=== PATIENT | male | born 1950 | race Caucasian/White ===

== ENCOUNTER 2021-06-10 10:31 | Observation (INO) | payer MEDICARE, OTHER ==
[2021-06-10] VITALS (9 sets, daily range): BP systolic 112–158; BP diastolic 57–77
[~2021-06-10] VITALS: Ht 180.3 cm; Wt 98.4 kg
--- NOTE | ~2021-06-10 | H ---
[address] [address] HISTORY AND PHYSICAL Name: JAMIE MOONEY Room: [address] Quan M.R.#: [id number] Admission: 06/10/21 Attend Phys: Souleymane Velazquez MD Discharge: 06/11/21 Date of : 48 Report #: [id number] THIS REPORT FOR: cc: JAMIE ZAPATA MD Physician not on staff [facility],Medical Records Staff ~ Please refer to the History and Physical performed in the physician's office. By: 0700Medical Records Staff [facility] /SANNA
[~2021-06-10 10:31] MED LIST: ASA81BEC PO; AVODART0.5 MG PO; FLEXERIL PO; LIVALO1 MG PO; MAGNESIUM OXID400 M1 PO; MICARDIS40 MG PO; VITAMIN C1000 MG PO; VITAMIN D310 MC1 PO
--- NOTE | 2021-06-10 11:10 | EKG ---
[place] [address] ELECTROCARDIOGRAM REPORT Name: JAMIE MOONEY Room: [facility]#: [id number] Admission: 06/10/21 Attend Phys: Peggy Jimenez Discharge: Date of : 48 Date of Service: 06/10/211101 Report #: [id number] THIS REPORT FOR: //name// [facility] Test Date: 2021-06-10 Test Time: 11:02:35 Pat Name: JAMIE MOONEY Department: Room: Gender: Nail Professional: : 1950 Requested By: Jamie Dawkins Order Number: [id number] Mark MD: Jamie Dawkins Measurements Intervals [place] Rate: 79 P: DE: QRS: -37 QRSD: 112 T: 31 QT: 425 QTc: 488 Interpretive Statements Atrial fibrillation Incomplete RBBB and LAFB Borderline prolonged QT interval No previous ECG available for comparison Electronically Signed On 06-10-2021 11:09:44 FRAME OPENER by Jamie Dawkins [email or web address] <ELECTRONICALLY SIGNED> By: Jamie Dawkins MD, [facility] 06/10/211108 01 01 Jamie Dawkins MD, FACC /EPI
[2021-06-10 11:14] LABS: HEMATOCRIT 42.4 % (42.0-52.0); HEMOGLOBIN 14.6 gm/dL (14.0-18.0); MCH 30.8 pg (26.0-34.0); MCHC 34.5 g/dL (28.0-37.0); MCV 89.3 fL (80.0-100.0); MPV 6.9 fl. (7.2-11.1); RBC 4.75 mil/uL (4.50-6.00); RDW-CV 13.3 % (10.5-14.5); WBC 6.1 thou/uL (4.0-11.0)
[2021-06-10 11:35] LABS: ANION GAP 10 mmol/L (7-16); BUN 14 mg/dL (7-18); CHLORIDE 102 mmol/L (98-107); CO2 26 mmol/L (21-32); CREATININE 1.3 mg/dL (0.6-1.3); GLUCOSE 109 mg/dL (70-99); POTASSIUM 3.9 mmol/L (3.5-5.1); SODIUM 138 mmol/L (136-145)
[2021-06-10 11:39] LABS: APTT 26.5 Seconds (25.0-31.3); PROTIME 10.4 Seconds (9.20-11.50)
[2021-06-10 11:40] LABS: ALKALINE PHOSPHATASE 77 U/L (46-116); CHOLESTEROL 165 mg/dL (<200); HDL CHOLESTEROL 63 mg/dL (>40); LDL CHOLESTEROL 84 mg/dL (<100); SGOT 18 U/L (15-37); SGPT 28 U/L (30-65); TC:HDL 2.6 Ratio (Not establshd); TOTAL BILIRUBIN 0.6 mg/dL (<0.1-1.0); TOTAL PROTEIN 7.9 g/dL (6.4-8.2); TRIGLYCERIDE 93 mg/dL (<150); VLDL 19 mg/dL (<40)
[2021-06-10 11:43] LABS: SERUM ASSESSMENT Clear
--- NOTE | 2021-06-10 16:15 | CARD ---
[address] [address] CARDIAC CATH REPORT Name: JAMIE MOONEY Room: [address] Quan M.R.#: [id number] Admission: 06/10/21 Attend Phys: Souleymane Velazquez MD Discharge: Date of : 48 Report #: [id number] THIS REPORT FOR: cc: JAMIE ZAPATA MD Physician not on staff Jamie Dawkins MD [facility] ~ APPROVED REPORT Study performed: 06/10/2021 11:14:34 Patient Details Patient Status: Out-Patient Room #: The patient is a 70 year-old male Event Personnel Jamie Dawkins Rehab Nursing Tech, Souleymane Velazquez Neurosurgery Research Director, Diana Ace RN RN, Wes Nguyen E COMMERCE MANAGER Scrub, Genny Dixon RTR Monitor, Celina Chnag, BUZZ Monitor Procedures Performed Art Access - R femoral artery* Left Heart Cath w/or w/o Coronaries C AL Place w/wo Plasty Single LAD PTCA Single Vessel DIAG PCISINGLE Hemostasis w/ Angioseal Indication Chest pain, Abnormal CT angiogram Risk Factors Hypercholesterolemia, Hypertension Admission/Lab Medications/Medications given during procedure Aspirin PO 325 mg, Effient PO 60 mg, , Nitroglycerin IC 200 mcg, Angiomax IV 33.4 mg per kg, Angiomax IV 14 ml, Nitroglycerin IA 100 mcg, Lidocaine Subcut 15 ml, 0.9% Sodium Chloride IV 125 ml per hr, Oxygen Nasal cannula 2 l per min Procedure Narrative The patient was brought electively to the Cardiac Catheterization Laboratory and was prepped and draped in a sterile manner. The right femoral was infiltrated with 2% Lidocaine subcutaneous anesthesia. IV conscious sedation was used throughout procedure with appropriate monitoring and was performed in the presence of a registered nurse who was an independent trained observer other than the physician performing the procedure. A Pierce 6 [place] [address] CARDIAC CATH REPORT Name: JAMIE MOONEY Room: [address] M.R.#: [id number] Admission: 06/10/21 Attend Phys: Souleymane Velazquez MD Discharge: Date of : 48 Report #: [id number] the right femoral artery. Coronary angiography was performed using coronary diagnostic catheters. The right coronary system was accessed and visualized with a Diagnostic 6Fr JR4 catheter. The left coronary system was accessed and visualized with a Diagnostic 6Fr JL4 catheter. The left ventricle was accessed and visualized with a Diagnostic 6Fr pigtail catheter. Left ventricular/Aortic Valve gradient assessed via catheter pullback. Left ventriculogram was performed in MATIAS projection. Pre-demployment femoral angiogram was performed . Closure device was deployed with a Fr Angioseal STS 6Fr. The patient tolerated the procedure well and there were no complications associated with the procedure. There was no hematoma. Intraoperative Conscious Sedation Sedation start time: 1129 Case end Time: 1355 Fentanyl 50 mcg Versed 3 mg Fluoro Time: 48.6 minutes Dose: DAP 228434 cGycm2 7843 mGy Contrast Type and Amount: Visipaque 725 mL Coronary Angiography The patient's coronary anatomy is right dominant. Diagnostic Cath Left Main 0% narrowing LAD 80% tubular calcified proximal left mid LAD stenosis with 80% ostial and 90% mid first diagonal stenosis Circumflex 80% tubular mid vessel stenosis Right Coronary Large dominant vessel with 40% proximalmid vessel narrowing Left Ventriculography The left ventricle is normal in size with normal contractility. The left ventricular ejection fraction is estimated to be 60%. Left ventricular wall motion abnormalities are present. There is no mitral insufficiency. Subtle anteroapical hypokinesis is noted Hemodynamics The aortic pressure is 136/56 mmHg with a mean of 85 mmHg. The left ventricular pressure is 122/0 mmHg with a mean of mmHg. The left ventricular end diastolic pressure is 14 mmHg. There was no gradient across the aortic [place] [address] CARDIAC CATH REPORT Name: JAMIE MOONEY Room: [address] M.R.#: [id number] Admission: 06/10/21 Attend Phys: Souleymane Velazquez MD Discharge: Date of : 48 Report #: [id number] PCI Technique Lesion Anticoagulation was achieved with Angiomax. Patient was preloaded with Angiomax IV 14 ml. Percutaneous coronary intervention was performed on the distal left anterior descending artery segment. The lesion stenosis prior to intervention was 80% with DEENA 3 flow. A 6Fr XB 3.5 Guide Catheter was used to engage the left ostium. A IG: BMW 190cm Interventional Guidewire was used to cross the lesion. BALLOON DILATION A Balloon catheter Mini Trek RX 2.0 X 8 was inserted and inflated up to 8.00atm for 6seconds. Additional Inflation: 8.00atm for 8seconds. A balloon catheter Mini Trek RX 1.5 x 8mm was inserted and inflated up 12 CHRISTIE for 5 seconds and 17 CHRISTIE for 8 seconds. STENT DEPLOYMENT A drug-eluting stent Vishal RX Stent 2.25X8mm was inserted and inflated up to 8.00atm for 6seconds. Additional Inflation: 12.00atm for 3seconds. A drug-eluting stent [place] RX Stent 2.0 x 8 mm was inserted and inflated up to 10 CHRISTIE for 8 seconds and 14 CHRISTIE for 4 seconds. Final angiography reveals 0 % stenosis with DEENA 3 flow. PCI Technique Lesion 2 Percutaneous Coronary Intervention was performed on the first diagnonal branch segment. The lesion stenosis prior to intervention was 90% with DEENA 3 flow. A 6Fr XB 3.5 Guide Catheter was used to engage the left ostium. A IG: ProwaterFlex 180CM Interventional Guidewire was used to cross the lesion. Balloon Dilation A Balloon catheter Mini Trek RX 2.0 X 8 was inserted and inflated up to 8.00atm for 4seconds. Additional Inflation: 10.00atm for 6seconds. Additional Inflation: 12.00atm for 6seconds. A new balloon catheter Mini Trek RX 2.0 X 8 was inserted and inflated up to 5.0 christie for 5 seonds. Additional Inflation: 11.0 christie for 7 seconds. Final angiography reveals 20 % stenosis with DEENA 3 flow. PCI Technique Lesion 3 Percutaneous Coronary Intervention was performed on the proximalmidl left anterior descending artery segment. The lesion stenosis prior to intervention was 80% with DEENA 3 flow. A 6Fr XB 3.5 Guide Catheter was used to engage the left ostium. A IG: ProwaterFlex 180[place] [address] CARDIAC CATH REPORT Name: JAMIE MOONEY Room: [address] M.RRena#: [id number] Admission: 06/10/21 Attend Phys: Souleymane Velazquez MD Discharge: Date of : 48 Report #: [id number] Interventional Guidewire was used to cross the lesion. Balloon Dilation A Balloon catheter Trek RX 2.25 X 15 was inserted and inflated up to 12.00atm for 9seconds. Additional Inflation: 18.00atm for 10seconds. A balloon catheter Trek RX 2.5 X 15 was inserted and inflated up to 14.0 christie for 14 seconds. Additional inflation: 15 christie for 8 seconds. Stent Deployment A drug-eluting stent [place] RX Stent 2.5 X 22mm was inserted and inflated up to 10.00atm for 4seconds. Additional Inflation: 12.00atm for 4seconds. A drug-eluting stent [place] RX stent 2.0 x 8 mm was inserted and inflated up to 14 christie for 6 seconds. Additional inflation: 14 christie for 9 seconds. Additional inflation: 22 christie for 8 seconds. Final angiography reveals 10 % stenosis with DEENA 3 flow. Comments The PCI was technically complex by virtue of LAD diagonal bifurcation disease requiring deployment of multiple stents in the LAD and angioplasty of sequential segments in the proximal and mid first diagonal. Conclusion 1. Severe multivessel coronary artery disease characterized by the following: A 80% calcified proximalmid LAD stenosis with 80% proximal and 90% first diagonal stenosis with 80% focal distal LAD stenosis B 80% tubular narrowing of the midportion of the nondominant circumflex C dominant right coronary with 40% proximalmid vessel narrowing 2. Normal global left ventricular function, estimated ejection fraction being 60% with subtle anteroapical hypokinesis 3 normal left-sided hemodynamic study 4. Successful PCI with deployment of sequential drug-eluting stents in the proximal and distal LAD with 10 and 0% [place] [address] CARDIAC CATH REPORT Name: JAMIE MOONEY Room: [address] Hi.#: [id number] Admission: 06/10/21 Attend Phys: Souleymane Velazquez MD Discharge: Date of : 48 Report #: [id number] following stent deployment and DEENA-3 flow to the distal vessel 5. Successful PTCA of the proximal and mid portions of the first diagonal with 20% residual narrowing and DEENA-3 flow to the distal vessel Recommendations Cardiac Risk Reduction Program Aggressive Medical Therapy Medications Administered Aspirin (any) Prasugrel Diagnostic Cath Approved by: Souleymane Velazquez MD Date/Time: 06/10/2021 16:09:26 <ELECTRONICALLY SIGNED> By: Jamie Dawkins MD, [facility] 06/10/21 1614 1614 1614Jotalha Dawkins MD, FACC /INF
[2021-06-11] VITALS: BP 116/57
[2021-06-11 04:08] VITALS: BP 116/65
--- NOTE | 2021-06-11 04:21 | NUR ---
PT ALERT AND ORIENTED, AD STEPH, ROOM AIR. SLEPT VERY WELL THIS SHIFT. SR ON MONITOR. NO PAIN, SWELLING OR REDNESS AT RIGHT GROIN STENT PLACEMENT SITE. NO FEVER. VITAL SIGNS STABLE. NO REQUESTS FOR ANY PAIN MEDS. AMBULATING WELL THIS MORNING. RECEIVED MEDS AND FLUIDS SCHEDULED.
[2021-06-11 04:49] LABS: HEMATOCRIT 37.1 % (42.0-52.0); MCH 30.4 pg (26.0-34.0); MCHC 33.7 g/dL (28.0-37.0); MCV 90.1 fL (80.0-100.0); RBC 4.12 mil/uL (4.50-6.00); RDW-CV 13.5 % (10.5-14.5); WBC 7.1 thou/uL (4.0-11.0)
[2021-06-11 04:56] LABS: HEMOGLOBIN 12.5 gm/dL (14.0-18.0)
[2021-06-11 05:05] LABS: ALBUMIN 2.9 g/dL (3.4-5.0); CALCIUM 8.5 mg/dL (8.5-10.1); CREATININE 1.2 mg/dL (0.6-1.3); POTASSIUM 4.4 mmol/L (3.5-5.1); TOTAL BILIRUBIN 0.4 mg/dL (<0.1-1.0); TOTAL PROTEIN 5.9 g/dL (6.4-8.2)
[2021-06-11 08:00] VITALS: BP 93/56
[2021-06-11] MEDS ORDERED: EFFIENT10 MG PO (08:05)
[2021-06-11] MEDS ORDERED: NITROGLYCERIN0.4 MG SUBLING (08:06)
--- NOTE | 2021-06-11 09:17 | NUR ---
CM ASSESSEMENT: PT A&O, INDEPENDENT WITH ADL'S,AND ACTIVE. PT RESIDES AT HOME WITH SPOUSE. PT USES 0 DME. PT HAS 0 HX OF HH OR SNF. NO CM D/C PLANNING NEEDS ANTICIPATED. CM WILL REMAIN AVAILABLE TO ASSIST AND FOLLOW NEEDED.
[2021-06-11 10:02] VITALS: BP 116/65
[2021-06-11 11:05] VITALS: BP 116/65
--- NOTE | 2021-06-11 13:45 | EKG ---
[place] [address] ELECTROCARDIOGRAM REPORT Name: JAMIE MOONEY Room: [address]#: [id number] Admission: 06/10/21 Attend Phys: Souleymane Velazquez, Discharge: 06/11/21 Date of : 48 Date of Service: 06/10/21 1420 Report #: [id number] THIS REPORT FOR: //name// [facility] Test Date: 2021-06-10 Test Time: 14:20:28 Pat Name: JAMIE BALDERASCHANTE Department: Room: [facility] Gender: M Douper: PREET : 1950 Requested By: Souleymane Velazquez Order Number: [id number] Reading MD: Jamie Dawkins Measurements Intervals [place] Rate: 53 P: 30 FL: 158 QRS: -44 QRSD: 113 T: -3 QT: 471 QTc: 443 Interpretive Statements Sinus rhythm Incomplete RBBB and LAFB Abnormal R-wave progression, late transition Compared to ECG 06/10/2021 11:02:35 Heart rate has decreased Electronically Signed On 06-11-2021 13:45:16 TERRITORY SALES MANAGER by Jamie Dawkins [email or web address] <ELECTRONICALLY SIGNED> By: Jamie Dawkins MD, FACC 06/11/21 1345 1420 1420 Jamie Dawkins MD, FACC /EPI
--- NOTE | 2021-06-11 13:59 | EKG ---
[place] [address] ELECTROCARDIOGRAM REPORT Name: JAMIE MOONEY Room: [address]#: [id number] Admission: 06/10/21 Attend Phys: Souleymane Velazquez, Discharge: 06/11/21 Date of : 48 Date of Service: 06/11/21 1043 Report #: [id number] THIS REPORT FOR: //name// [facility] Test Date: 2021-06-11 Test Time: 10:43:03 Pat Name: JAMIE MOONEY Department: Room: [facility] Gender: M Supervisor Fusing Room: : 1950 Requested By: Souleymane Velazquez Order Number: [id number] Reading MD: Jamie Dawkins Measurements Intervals [place] Rate: 69 P: 34 WI: 148 QRS: -51 QRSD: 110 T: 8 QT: 419 QTc: 449 Interpretive Statements Sinus rhythm Left anterior fascicular block Compared to ECG 06/10/2021 14:20:28 Incomplete right bundle-branch block no longer present Right bundle-branch block no longer present Electronically Signed On 06-11-2021 13:58:44 FRAME SAMPLE AND PATTERN SUPERVISOR by Jamie Dawkins [email or web address] <ELECTRONICALLY SIGNED> By: Jamie Dawkins MD, FACC 06/11/21 1358 1043 1043 Jamie Dawkins MD, FACC /EPI
--- NOTE | 2021-06-11 15:38 | D ---
[address] [address] DISCHARGE SUMMARY Name: JAMIE MOONEY Room: [address] Quan M.R.#: [id number] Admission: 06/10/21 Attend Phys: Souleymane Velazquez MD Discharge: 06/11/21 Date of : 48 Report #: [id number] THIS REPORT FOR: cc: JAMIE ZAAPTA MD Physician not on staff Jamie Dawkins MD [facility] ~ DATE OF DISCHARGE: 06/11/2021 FINAL DISCHARGE DIAGNOSES: 1. Chest pain compatible with angina pectoris. 2. Abnormal CT angiogram. 3. Hypertension. 4. Hypercholesterolemia. 5. Status post PCI with stenting of the proximal -- mid and distal LAD and angioplasty of the first diagonal branch. PROCEDURES: 06/10/2021 -- left heart catheterization, left ventriculography, selective coronary angiography and percutaneous coronary intervention with deployment of 2 drug-eluting stents in the proximal -- mid LAD, 2 drug-eluting stents in the distal LAD and angioplasty of the first diagonal branch. HOSPITAL COURSE: The patient is a very pleasant and active 70-year-old male who has noted episodes of chest discomfort both at rest and with exertion. He does have risk factors for coronary artery disease including hypertension, hypercholesterolemia and a weakly positive family history. In this context, CT angiogram was performed at [facility] in [place]. That suggested significant LAD disease. In this context, cardiac catheterization was performed on 06/10/2021. That study revealed normal LV function, estimated ejection fraction of 60% with subtle anteroapical hypokinesis. There was significant multivessel coronary artery disease with 80% calcified proximal -- mid LAD stenosis, 80% focal distal LAD stenosis, 80% tubular mid circumflex stenosis and 40% proximal -- mid right coronary stenosis. Left ventricular end-diastolic pressure was normal. In this setting with chest discomfort, multiple risk factors and abnormal CT angiogram, I elected to proceed with percutaneous coronary intervention, deploying 2.5 x 22 mm Vishal drug-eluting stent and a 2.0 x 8 mm [place] drug-eluting stent just distal to this in the proximal -- mid LAD and 2.5 x 8 and 2.0 x 8 [place] drug-eluting stents in the distal LAD. We performed angioplasty on the first diagonal dilating the proximal and mid portions. There was 10% residual proximal LAD 0% residual distal LAD and 20% residual first diagonal narrowing with DEENA 3 [place] [address] DISCHARGE SUMMARY Name: JAMIE MOONEY Room: [address] Quan Evans#: [id number] Admission: 06/10/21 Attend Phys: Souleymane Velazquez MD Discharge: 06/11/21 Date of : 48 Report #: [id number] The patient did well post-procedurally and there was no significant chest discomfort noted post-procedurally. EKG revealed no ischemic changes. Pre and post revealed sinus rhythm, incomplete right bundle branch block, left anterior hemiblock. LABORATORY DATA: On 06/11 revealed a sodium 139, potassium 4.4, BUN 13, creatinine 1.2, glucose 94. Hemoglobin 12.5, white blood cell count 7100 with 270,000 platelets. Cholesterol 165, triglycerides 73, HDL 63, LDL 84 mg/dL. DISCHARGE MEDICATIONS: The patient was discharged home on 06/11/2021 on the following medications: Prasugrel or Effient 10 mg daily with a 60 mg dose given periprocedurally, p.r.n. sublingual nitroglycerin 0.4 mg, ascorbic acid 1000 mg daily, enteric-coated aspirin 81 mg daily, vitamin D3 400 units daily, cyclobenzaprine or Flexeril 10 mg t.i.d., Dutasteride 0.5 mg daily, magnesium oxide 400 mg daily, Livalo increased from 2 to 4 mg daily and Micardis 40 mg daily. The patient is scheduled to return to see me in the office at [facility] on 06/30/2021 at 08:20 hours. Therefore, the patient is discharged home in stable condition on the aforementioned medications with followup as described above. <ELECTRONICALLY SIGNED> By: Jamei Dawkins MD, FACC 06/11/21 1538 0849 0924Jotalha Dawkins MD, FACC /nt
== END 2021-06-11 11:40 | disposition home or self-care (01) ==
LOC: M.CL 10:31 → M.TBA-CV 14:13 → M.2W 15:15
PROVIDERS: Internal Medicine; ADMIT Internal Medicine Cardiovascular Disease; ATTEND Internal Medicine Cardiovascular Disease
DX: I20.9 Angina pectoris, unspecified (principal); Z20.822 Contact with and (suspected) exposure to COVID-19; I10 Essential (primary) hypertension; E78.00 Pure hypercholesterolemia, unspecified; R93.1 Abnormal findings on diagnostic imaging of heart and coronary circulation; Z95.5 Presence of coronary angioplasty implant and graft

== ENCOUNTER 2021-08-05 08:37 | Observation (INO) | payer MEDICARE, OTHER ==
[~2021-08-05] VITALS: Ht 180.3 cm; Wt 92.5 kg
[2021-08-05] VITALS (14 sets, daily range): BP systolic 105–199; BP diastolic 53–70
[~2021-08-05 08:37] MED LIST changes: +EFFIENT10 MG PO; +MAGNESIUM500 MG PO; +NITROGLYCERIN0.4 MG SUBLING; +ZYPITAMAG4 MG PO
[2021-08-05 09:12] LABS: HEMATOCRIT 41.5 % (42.0-52.0); HEMOGLOBIN 13.9 gm/dL (14.0-18.0); MCH 29.8 pg (26.0-34.0); MCHC 33.4 g/dL (28.0-37.0); MCV 89.2 fL (80.0-100.0); MPV 6.5 fl. (7.2-11.1); RBC 4.65 mil/uL (4.50-6.00); WBC 5.2 thou/uL (4.0-11.0)
[2021-08-05] MEDS ORDERED: LIVALO4 MG PO (09:20)
[2021-08-05 09:40] LABS: ANION GAP 9 mmol/L (7-16); BUN 15 mg/dL (7-18); CALCIUM 8.6 mg/dL (8.5-10.1); CHLORIDE 100 mmol/L (98-107); CO2 25 mmol/L (21-32); CREATININE 1.3 mg/dL (0.6-1.3); GLUCOSE 99 mg/dL (70-99); POTASSIUM 4.3 mmol/L (3.5-5.1); SODIUM 134 mmol/L (136-145)
--- NOTE | 2021-08-05 09:42 | EKG ---
[place] [address] ELECTROCARDIOGRAM REPORT Name: JAMIE MOONEY Room: [facility]#: [id number] Admission: 08/05/21 Attend Phys: Peggy Jimenez Discharge: Date of : 48 Date of Service: 08/05/2111 Report #: [id number] THIS REPORT FOR: //name// [facility] Test Date: 2021-08-05 Test Time: 09:11:57 Pat Name: JAMIE MOONEY Department: Room: Gender: Mailing Machine Operator: : 1950 Requested By: Souleymane eVlazquez Order Number: [id number] Reading MD: Jamie Dawkins Measurements Intervals [place] Rate: 73 P: 23 [place]: 133 QRS: -36 QRSD: 108 T: 51 QT: 427 QTc: 471 Interpretive Statements Sinus rhythm Incomplete RBBB and LAFB Low voltage, precordial leads Nonspecific T abnormalities, lateral leads Compared to ECG 06/11/2021 10:43:03 Incomplete right bundle-branch block now present Low QRS voltage now present Electronically Signed On 08-05-2021 9:42:40 MEDICAL TRANSCRIPTIONIST by Jamie Dawkins [email or web address] <ELECTRONICALLY SIGNED> By: Jamie Dawkins MD, [facility] 08/05/2142 0 0 Jamie Dawkins MD, [facility] /EPI
[2021-08-05 09:44] LABS: ALBUMIN 3.8 g/dL (3.4-5.0); ALKALINE PHOSPHATASE 75 U/L (46-116); CHOLESTEROL 131 mg/dL (<200); HDL CHOLESTEROL 49 mg/dL (>40); LDL CHOLESTEROL 65 mg/dL (<100); SERUM ASSESSMENT CL; SGOT 16 U/L (15-37); SGPT 33 U/L (30-65); TC:HDL 2.7 Ratio (Not establshd); TOTAL BILIRUBIN 0.4 mg/dL (<0.1-1.0); TOTAL PROTEIN 7.2 g/dL (6.4-8.2); TRIGLYCERIDE 85 mg/dL (<150); VLDL 17 mg/dL (<40)
[2021-08-05 10:42] LABS: APTT 26.2 Seconds (25.0-31.3); PROTIME 10.5 Seconds (9.20-11.50)
--- NOTE | 2021-08-05 11:23 | CARD ---
[address] [address] CARDIAC CATH REPORT Name: JAMIE MOONEY Room: [address] M.RRena#: [id number] Admission: 08/05/21 Attend Phys: Jamei Dawkins MD, Discharge: Date of : 48 Report #: [id number] THIS REPORT FOR: cc: JAMIE ZAPATA MD Physician not on staff Jamie Dawkins MD [facility] ~ APPROVED REPORT Study performed: 08/05/2021 09:16:46 Patient Details Patient Status: Out-Patient Room #: The patient is a 70 year-old mmale Event Personnel Dr. Dawkins, Dr. Marcus Stein RN, Wes GUERREROIS, Olesya Perez RTR Procedures Performed Coronary angiogram with staged PCI of the mid Circumflex Indication Unstable angina Risk Factors Hypercholesterolemia, Hypertension Previous Procedures/Diagnoses Previous PCI Procedure Narrative The patient was brought electively to the Cardiac Catheterization Laboratory and was prepped and draped in a sterile manner. The right femoral was infiltrated with 2% Lidocaine subcutaneous anesthesia. IV conscious sedation was used throughout procedure with appropriate monitoring and was performed in the presence of a registered nurse who was an independent trained observer other than the physician performing the procedure. A 6Fr [place] sheath was inserted into the right femoral artery. Coronary angiography was performed using coronary diagnostic catheters. The left coronary system was accessed and visualized with a Guide 6Fr XB 3.5 catheter. Pre-demployment femoral angiogram was performed in MATIAS. Closure device was deployed with a 6 Fr Angioseal. The patient tolerated the procedure well and [address] [address] CARDIAC CATH REPORT Name: JAMIE MOONEY Room: [address] Quan Evans#: [id number] Admission: 08/05/21 Attend Phys: Jamie Dawkins MD, Discharge: Date of : 48 Report #: [id number] there were no complications associated with the procedure. There was no hematoma. Intraoperative Conscious Sedation Sedation start time: 09 Case end Time: 1023 Fentanyl 25.0 mcg Versed 2.0 mg Fluoro Time: 5.8 minutes Dose: DAP 68219 cGycm2 794 mGy Contrast Type and Amount: Visipaque 180ml Coronary Angiography The patient's coronary anatomy is right dominant. Diagnostic Cath Left Main 0% narrowing LAD 30% proximal narrowing with a widely patent proximalmid LAD stent and widely patent distal stent; there was 20% narrowing of a recently dilated first diagonal branch of the LAD Circumflex Nondominant vessel with 80% tubular mid vessel stenosis Right Coronary Large dominant vessel with 40% mid vessel narrowing as recently defined Left Ventriculography Left Ventriculography was not performed. Hemodynamics The aortic pressure is 106/43 mmHg with a mean of 65 mmHg. PCI Technique Lesion Anticoagulation was achieved with Angiomax. Bolus and Drip Percutaneous coronary intervention was performed on the mid circumflex artery segment. The lesion stenosis prior to intervention was 80% with DEENA 3 flow. A 6 Fr XB3.5 Guide Catheter was used to engage the LCA ostium. A 190cm BMW Interventional Guidewire was used to cross the lesion. BALLOON DILATION A Balloon catheter 1.5 x 12 Mini Trek was inserted and inflated up to 16atm for 25seconds. Additional Inflation: 17atm for 9seconds. A 2.0 x 12 NC Trek was used prior to stent insertion. Inflated to 12 CHRISTIE [place] 9 [place] [address] CARDIAC CATH REPORT Name: JAMEI MOONEY Room: [address] M.R.#: [id number] Admission: 08/05/21 Attend Phys: Jamie Dawkins MD, Discharge: Date of : 48 Report #: [id number] STENT DEPLOYMENT A drug-eluting stent 2.0 x 18 [place] was inserted and inflated up to 10atm for 7seconds. Additional Inflation: 10atm for 9seconds. Final angiography reveals 0 % stenosis with DEENA 3 flow. Conclusion 1. Significant coronary artery disease characterized by the following: A 30% proximal LAD narrowing with a widely patent proximal/mid LAD stent and widely patent distal LAD stent; there was 20% narrowing of a recently dilated first diagonal branch of the LAD B nondominant circumflex with 80% tubular mid vessel stenosis C dominant right coronary artery with 40% mid vessel narrowing as recently defined 2. Normal systemic pressure throughout the study 3. Successful PCI with deployment of a drug-eluting stent at the site of 80% tubular mid circumflex stenosis with 0% residual narrowing and DEENA-3 flow to the distal vessel Medications Administered Aspirin (any) Prasugrel Diagnostic Cath Approved by: Souleymane Velazquez MD Date/Time: 08/05/2021 11:18:35 <ELECTRONICALLY SIGNED> By: Jamie Dawkins MD, [facility] 08/05/211121 21 21Jamie Dawkins MD, [facility] /INF
--- NOTE | 2021-08-05 14:28 | EKG ---
[place] [address] ELECTROCARDIOGRAM REPORT Name: JAMIE MOONEY Room: [address] M.R.#: [id number] Admission: 08/05/21 Attend Phys: Peggy Jimenez Discharge: Date of : 48 Date of Service: 08/05/21 1148 Report #: [id number] THIS REPORT FOR: //name// [facility] Test Date: 2021-08-05 Test Time: 11:48:26 Pat Name: JAMEI MOONEY Department: Room: [facility] Gender: M Skilled Laborer: : 1950 Requested By: Souleymane Velazquez Order Number: [id number] Reading MD: Jamie Dawkins Measurements Intervals [place] Rate: 61 P: 24 CO: 146 QRS: -55 QRSD: 115 T: 24 QT: 448 QTc: 452 Interpretive Statements Sinus rhythm Left anterior fascicular block Compared to ECG 08/05/2021 09:11:57 Incomplete right bundle-branch block no longer present T-wave abnormality no longer present Electronically Signed On 08-05-2021 14:28:01 SALES REPRESENTATIVE GRAPHIC ART by Jamie Dawkisn [email or web address] <ELECTRONICALLY SIGNED> By: Jamie Dawkins MD, [facility] 08/05/21 1428 1148 1148 Jamie Dakwins MD, [facility] /EPI
[2021-08-06] VITALS: BP 116/66
[2021-08-06 04:00] VITALS: BP 127/71
[2021-08-06 05:27] LABS: HEMATOCRIT 38.1 % (42.0-52.0); HEMOGLOBIN 12.6 gm/dL (14.0-18.0); MCH 29.6 pg (26.0-34.0); MCHC 33.1 g/dL (28.0-37.0); MCV 89.5 fL (80.0-100.0); MPV 6.9 fl. (7.2-11.1); RBC 4.26 mil/uL (4.50-6.00); RDW-CV 13.3 % (10.5-14.5); WBC 6.4 thou/uL (4.0-11.0)
[2021-08-06 06:01] LABS: CALCIUM 8.3 mg/dL (8.5-10.1); CREATININE 1.2 mg/dL (0.6-1.3); POTASSIUM 4.2 mmol/L (3.5-5.1); TOTAL BILIRUBIN 0.2 mg/dL (<0.1-1.0); TOTAL PROTEIN 6.2 g/dL (6.4-8.2)
[2021-08-06 08:00] VITALS: BP 124/63
--- NOTE | 2021-08-06 11:13 | EKG ---
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: [place] : 1950 Requested By: Souleymane Velazquez Order Number: [id number] Reading MD: Jamie Dawkins Measurements Intervals [place] Rate: 67 P: 13 NV: 135 QRS: -46 QRSD: 115 T: 30 QT: 422 QTc: 446 Interpretive Statements Sinus rhythm Left anterior fascicular block Low voltage, precordial leads Compared to ECG 08/05/2021 11:48:26 Low QRS voltage now present Electronically Signed On 08-06-2021 11:12:59 SERVICE DELIVERY MANAGER by Jamie Dawkins [email or web address] <ELECTRONICALLY SIGNED> By: Jamie Dawkins MD, [facility] 08/06/21 1112 7 Jamie Dawkins MD, [facility] /EPI
[2021-08-06 11:32] VITALS: BP 124/63
--- NOTE | 2021-08-06 15:50 | D ---
[address] [address] DISCHARGE SUMMARY Name: JESICAJAMIE ARVIZU Room: [address] Quan Evans#: [id number] Admission: 08/05/21 Attend Phys: Jamie Dawkins MD, Discharge: 08/06/21 Date of : 48 Report #: [id number] THIS REPORT FOR: cc: JAMIE ZAPATA MD Physician not on staff Jamie Dawkins MD [facility] ~ DATE OF DISCHARGE: 08/06/2021 FINAL DISCHARGE DIAGNOSES: 1. Unstable angina. 2. Coronary artery disease. 3. Status post prior percutaneous coronary intervention to the left anterior descending and diagonal. 4. Status post percutaneous coronary intervention to the circumflex on 08/05/2021. 5. Hypertension. 6. Hyperlipidemia. PROCEDURES: On 08/05/2021 -- selective coronary arteriography, and percutaneous coronary intervention with deployment of drug-eluting stent in the mid circumflex. HOSPITAL COURSE: The patient is a very pleasant 70-year-old male from [facility]. He had experienced atypical chest discomfort and had a CT scan performed, which revealed a markedly increased coronary calcium score. In the context of the symptoms, risk factors of hypertension, hyperlipidemia and increased coronary calcium score, we performed cardiac catheterization 8 weeks ago. That revealed significant LAD, diagonal and circumflex disease. In the initial setting 8 weeks ago, we performed PCI on the proximal -- mid LAD and distal LAD with 1 drug-eluting stent in the first position and 2 in the second with a diagonal approach with PTCA in the modest-sized diagonal with a good angiographic result at all sites. Circumflex intervention was deferred at that time by virtue of the complexity of the initial procedure. He had diminished his activities and noted vague malaise and discomfort with exertion on the treadmill and has not resumed that activity since the prior procedure. He underwent recatheterization on 08/05/2021 which revealed widely patent proximal -- mid and distal LAD stents and satisfactory results of the first diagonal angioplasty with 20% residual narrowing. We placed 1 Capay drug-eluting stent in the mid circumflex with a 0% [place] [address] DISCHARGE SUMMARY Name: JAMIE MOONEY Room: [address] M.R.#: [id number] Admission: 08/05/21 Attend Phys: Jamie Dawkins MD, Discharge: 08/06/21 Date of : 48 Report #: [id number] narrowing and DEENA 3 flow to the distal vessel. The patient did well post-procedurally. Laboratory on 08/06 revealed a sodium 140, potassium 4.2, BUN 14, creatinine 1.2, glucose 98. Cholesterol 131, triglycerides 85, LDL 65, HDL 49. Hemoglobin 12.6, white blood cell count 6400 with 263,000 platelets. The patient ambulated in the hallways without difficulty and there was good hemostasis at the right femoral site of catheterization. DISCHARGE MEDICATIONS: He was discharged home on the following medications: Enteric-coated aspirin 81 mg daily, Flexeril 10 mg as needed for muscle spasm, Avodart 0.5 mg daily, telmisartan 40 mg daily, prasugrel 10 mg daily, pitavastatin or Livalo 4 mg daily. Of note, the LDL cholesterol was down to 65 mg% in the context of augmented Livalo therapy for it. Liver function tests were normal. Therefore, the patient is discharged home in stable condition. I will plan to see him in followup on 09/23/2021 at 11:20 a.m. at the [facility] office. Therefore, the patient is discharged home in stable condition on the aforementioned medications with followup as described above. <ELECTRONICALLY SIGNED> By: Jamie Dawikns MD, [facility] 08/06/21 1550 0847 [id number] Dawkins MD, FAC /nt
== END 2021-08-06 11:52 | disposition home or self-care (01) ==
LOC: M.CL 08:37 → M.TBA-CV 10:32 → M.CL 11:30 → M.2W 15:10
PROVIDERS: Internal Medicine Cardiovascular Disease; ADMIT Internal Medicine; ATTEND Internal Medicine
DX: I25.110 Atherosclerotic heart disease of native coronary artery with unstable angina pectoris (principal); I10 Essential (primary) hypertension; E78.5 Hyperlipidemia, unspecified; Z20.822 Contact with and (suspected) exposure to COVID-19; Z79.899 Other long term (current) drug therapy; Z88.8 Allergy status to other drugs, medicaments and biological substances; Z79.01 Long term (current) use of anticoagulants